=== PATIENT | male | born 1935 | race Caucasian/White ===

== ENCOUNTER 2021-09-05 17:30 | Inpatient (IN) | payer MEDICARE ==
[2021-09-06] MEDS ORDERED: Heparin 10,000 UNITS/ 10 ML VIAL ONE (09:09)
[2021-09-06] MEDS ORDERED: EPINEPHrine 1 MG/ML AMP ONE (09:09)
[2021-09-06] MEDS ORDERED: Bupivacaine PF 0.5% 30 ML VIAL ONE (09:09)
[2021-09-06] MEDS ORDERED: Dexamethasone 4 mg/ml Vial ONE (09:09)
[2021-09-06] MEDS ORDERED: Protamine Sulfate 50 MG/5 ML VIAL ONE (09:09)
[2021-09-06] MEDS ORDERED: Phenylephrine 10 MG/ML VIAL ONE (09:12)
[2021-09-06] MEDS ORDERED: fentaNYL Citrate/PF 100 MCG/2 ML SYRINGE ONE (09:12)
[2021-09-06] MEDS ORDERED: Sodium Chloride 0.9% 100 ML ONE (09:53)
[2021-09-06] MEDS ORDERED: CEFAZOLIN 2 GM VIAL ONE (09:53)
[2021-09-06] MEDS ORDERED: Glycopyrrolate 0.2 MG/ML 5 ML SYRINGE ONE (10:06)
[2021-09-06] MEDS ORDERED: PROPOFOL 200 MG/20 ML VIAL ONE (10:06)
[2021-09-06] MEDS ORDERED: Ondansetron PF 4 MG/2 ML Vial ONE (10:06)
[2021-09-06] MEDS ORDERED: Esmolol 100 MG/10 ML VIAL ONE (10:06)
[2021-09-06] MEDS ORDERED: Lidocaine 1% PF 5 ML VIAL ONE (10:06)
[2021-09-06] MEDS ORDERED: PHENYLEPHRINE-NS 100 MCG/ML 10 ML SYRINGE ONE (10:06)
[2021-09-06] MEDS ORDERED: Rocuronium Bromide 10 MG/ML (10ML VIAL) ONE (10:06)
[2021-09-06] MEDS ORDERED: Dexamethasone 20 MG/5 ML VIAL ONE (10:06)
[2021-09-06] MEDS ORDERED: Ketorolac Tromethamine 30 MG/ML VIAL ONE (10:06)
[2021-09-06] MEDS ORDERED: Promethazine HCl 25 MG/ML VIAL IM PRN ×2 (11:33→11:53)
[2021-09-06] MEDS ORDERED: Ondansetron HCl/PF 4 MG/2 ML Vial IVP PRN (11:33)
[2021-09-06] MEDS ORDERED: Promethazine HCl 25 MG/ML VIAL IVPB PRN (11:33)
[2021-09-06] MEDS ORDERED: Polyethylene Glycol 3350 17 GM Packet PO PRN (11:53)
[2021-09-06] MEDS ORDERED: Ondansetron PF 4 MG/2 ML Vial IVP PRN (11:53)
[2021-09-06] MEDS ORDERED: GUAIFENESIN SF SOLN 200 MG/10 ML UDCUP PO PRN (11:53)
[2021-09-06] MEDS ORDERED: Bisacodyl 10 MG SUPP PR PRN (11:53)
[2021-09-06] MEDS ORDERED: Fentanyl 100 MCG/2 ML VIAL SLOW IVP PRN ×2 (11:53)
[2021-09-06] MEDS ORDERED: hydrALAZINE 20 MG/ML VIAL SLOW IVP PRN (11:53)
[2021-09-06] MEDS ORDERED: traMADol HCl 50 MG TAB PO PRN ×2 (11:53)
[2021-09-06] MEDS ORDERED: ESTAZOLAM 2 MG PO PRN (11:53)
[2021-09-06] MEDS ORDERED: Acetaminophen 325 MG TAB PO PRN (11:53)
[2021-09-06] MEDS ORDERED: Cyclobenzaprine 10 MG TAB PO PRN (11:53)
[2021-09-06] MEDS ORDERED: Ibuprofen 200 MG TAB PO PRN (11:53)
[2021-09-06] MEDS ORDERED: Fentanyl 100 MCG/2 ML VIAL ONE (12:04)
[2021-09-06] MEDS ORDERED: Loperamide HCl 2 MG CAP PO PRN (12:34)
[2021-09-06 13:24] VITALS: BMI 30.2
[2021-09-06] MEDS: CEFAZOLIN 2 GM in Sodium Chloride 0.9% 100 ML IVPB SCH (19:26)
[2021-09-06] MEDS: Tamsulosin HCl 0.4 MG CAP PO SCH (21:18)
[2021-09-07] MEDS: CEFAZOLIN 2 GM in Sodium Chloride 0.9% 100 ML IVPB SCH ×2 (02:08→09:09)
[2021-09-07 03:27] LABS: #Lymphocytes 0.7 thou/uL (1.20-3.40); #Monocytes 0.5 thou/uL (0.11-0.59); #Neutrophils 4.5 thou/uL (1.40-6.50); %Basophils 0.2 % (0.0-1.0); %Eosinophils 0.1 % (0.0-10.0); %Monocytes 8.3 % (0.0-10.0); %Neutrophils 79.6 % (42.0-75.0); Hemoglobin 12.5 g/dL (14.0-18.0); Mean Corpuscular HGB CONC 32.6 g/dL (32.0-36.0); Mean Corpuscular Hemoglobin 33.2 pg (27.0-31.0); Mean Platelet Volume 7.6 fL (7.4-10.4); Platelet Count 99 thou/uL (130-400); RBC Distribution Width 13.4 % (11.5-14.5); Red Blood Cell (RBC) Count 3.78 mill/uL (4.70-6.10); White Blood Cell (WBC) Count 5.7 thou/uL (4.8-10.8)
[2021-09-07 03:42] LABS: Anion Gap 12 mmol/L (10-20); BUN (Urea Nitrogen) 23 mg/dL (8.4-25.7); Calc. Creatinine Clearance 69 mL/min (70-130); Calcium 8.7 mg/dL (7.8-10.44); Carbon Dioxide 20 mmol/L (23-31); Chloride 112 mmol/L (98-107); Glucose 125 mg/dL (83-110); Potassium 4.5 mmol/L (3.5-5.1); Sodium 139 mmol/L (136-145)
[2021-09-07] MEDS ORDERED: Transdermal Patch Removal TOP SCH (04:00)
[2021-09-07 07:31] VITALS: TEMP 97.8
[2021-09-07] MEDS ORDERED: Lisinopril 10 MG TAB PO SCH (09:00)
[2021-09-07] MEDS ORDERED: Folic Acid 1 MG TAB PO SCH (09:00)
[2021-09-07] MEDS ORDERED: Aspirin 325 MG TAB PO SCH (09:00)
[2021-09-07] MEDS: Tamsulosin HCl 0.4 MG CAP PO SCH (09:09)
[2021-09-07 09:11] VITALS: BP 127/98
[2021-09-07] MEDS ORDERED: Lidocaine 5% Patch TD SCH (16:00)
[2021-09-07] MEDS ORDERED: Atorvastatin Calcium 20 MG TAB PO SCH (21:00)
== END 2021-09-07 13:45 | disposition home or self-care (01) | DRG 269 ==
LOC: SURG A 09-06 08:51 → CCU 09-06 12:56
PROVIDERS: ADMIT Thoracic Surgery (Cardiothoracic Vascular Surgery); ATTEND Thoracic Surgery (Cardiothoracic Vascular Surgery)
PROC: 04V03EZ Restriction of Abdominal Aorta with Branched or Fenestrated Intraluminal Device, One or Two Arteries, Percutaneous Approach (ICD-10-PCS; principal; 2021-09-06)
PROC: B41D1ZZ Fluoroscopy of Aorta and Bilateral Lower Extremity Arteries using Low Osmolar Contrast (ICD-10-PCS; 2021-09-06)
DX: I71.4 Abdominal aortic aneurysm, without rupture (principal); I48.20 Chronic atrial fibrillation, unspecified; G47.36 Sleep related hypoventilation in conditions classified elsewhere; E78.2 Mixed hyperlipidemia; I10 Essential (primary) hypertension; K21.9 Gastro-esophageal reflux disease without esophagitis; N40.0 Benign prostatic hyperplasia without lower urinary tract symptoms; Z96.612 Presence of left artificial shoulder joint; Z96.611 Presence of right artificial shoulder joint; Z96.651 Presence of right artificial knee joint; Z79.01 Long term (current) use of anticoagulants; Z79.899 Other long term (current) drug therapy; Z79.82 Long term (current) use of aspirin; Z86.73 Personal history of transient ischemic attack (TIA), and cerebral infarction without residual deficits; Z90.89 Acquired absence of other organs; Z98.890 Other specified postprocedural states
CPT/HCPCS: 36415; 76000; 80048; 85025; 86850; 86900; 86901; C1726; C1760; C1768; C1874; C1894; J0171; J1100; J1642; J1644; J1885; J2370; J2405; J2704; J2720; J3010; J3490; S0020